=== PATIENT | male | born 1930 | race Caucasian/White ===

== ENCOUNTER 2017-11-24 17:11 | Emergency (ER) | payer MEDICARE, OTHER ==
[2017-11-24] MEDS ORDERED: Alum Hydroxide/Mag Hydroxide 15 ML, Lidocaine 2% 15 ML PO ONE ×2 (17:50)
--- NOTE | 2017-11-24 17:52 | EDM.PDOC ---
ED HPI GENERAL MEDICAL PROBLEM - General Chief Complaint: Abdominal Pain Stated Complaint: VOMITTING Time Seen by Provider: 11/24/17 17:40 Source of Information: Reports: Patient, Family, Old Records History Limitations: Reports: No Limitations - History of Present Illness INITIAL COMMENTS - FREE TEXT/NARRATIVE: Vin comes to [facility] ED with sxs of epigastric pain since this morning, sharp at times, with some radiation into the back. There is some nausea, and he did have a small emesis of lunch meal, greenish tinged and sour. There is no fever, chills, sweats, diarrnea, or voiding sxs. He has tried no meds. Of interest is a recent ABD CT scan from november 06 identifying a ventral hearnia. mid upper abdomen Pain Score (Numeric/FACES): 10 - Related Data Allergies Allergy/AdvReac Type Severity Reaction Status Date / Time No Known Allergies Allergy Verified 11/24/17 17:40 Home Meds: Home Meds Albuterol/Ipratropium [DuoNeb 3.0-0.5 MG/3 ML] 3 ml INH DAILY 11/24/17 [History] Terazosin [Hytrin] 5 mg PO DAILY 11/24/17 [History] Past Medical History Oncologic (Cancer) History: Reports: Colon ED ROS GENERAL - Review of Systems Review Of Systems: See Below Constitutional: Reports: Malaise, Decreased Appetite HEENT: Reports: No Symptoms Respiratory: Reports: No Symptoms Cardiovascular: Reports: No Symptoms Endocrine: Reports: No Symptoms GI/Abdominal: Reports: Abdominal Pain, Decreased Appetite, Nausea, Vomiting : Reports: No Symptoms Musculoskeletal: Reports: No Symptoms Skin: Reports: No Symptoms Neurological: Reports: No Symptoms Psychiatric: Reports: No Symptoms Hematologic/Lymphatic: Reports: No Symptoms Immunologic: Reports: No Symptoms ED EXAM, GI/ABD - Physical Exam Exam: See Below Exam Limited By: No Limitations General Appearance: Alert, WD/WN, No Apparent Distress, Anxious, Thin Eyes: Bilateral: Normal Appearance, EOMI Ears: Normal External Exam Nose: Normal Inspection Throat/Mouth: Normal Inspection, Normal Oropharynx Head: Normocephalic Neck: Normal Inspection, Supple, Non-Tender Respiratory/Chest: Lungs Clear, Normal Breath Sounds, Chest Non-Tender Cardiovascular: Regular Rate, Rhythm, No Murmur GI/Abdominal Exam: Normal Bowel Sounds, Soft, No Organomegaly, No Distention, No Mass, Tender (epigastrium), Other (ventral hernia) (Male) Exam: Deferred Rectal (Males) Exam: Deferred Back Exam: Normal Inspection Extremities: Normal Inspection Neurological: Alert, Oriented, CN II-XII Intact, Normal Gait, No Motor/Sensory Deficits Psychiatric: Normal Mood, Flat Affect Skin Exam: Warm, Dry, Intact, Normal Color Lymphatic: No Adenopathy Course - Vital Signs Text/Narrative:: Following assessment at the [facility] ED, Vin was administered a GI Cocktail, with relief of digestive sxs within 30 mins. Observation noted no relapse of sxs. Issues of medical follow up and possile EGD were also discussed. He will go on Prilosec OTC 20 mg qpm tonight. Last Recorded V/S: Last Vital Signs Temp 36.3 C 11/24/17 17:15 Pulse 64 11/24/17 17:15 Resp 16 11/24/17 17:15 BP 149/53 H 11/24/17 17:15 Pulse Ox 98 11/24/17 17:15 - Orders/Labs/Meds Labs: Laboratory Tests 11/24/17 11/24/17 Range/Units 17:55 17:55 WBC 7.4 (4.5-12.0) X10-3/uL RBC 3.69 L (4.30-5.75) x10(6)uL Hgb 12.0 (11.5-15.5) g/dL Hct 35.6 (30.0-51.3) % MCV 96.6 H (80-96) fL MCH 32.6 (27.7-33.6) pg MCHC 33.8 (32.2-35.4) g/dL RDW 13.8 (11.5-15.5) % Plt Count 153 (125-369) X10(3)uL MPV 7.9 (7.4-10.4) fL Add Manual Diff Yes Neutrophils % (Manual) 82 (46-82) % Band Neutrophils % 3 (0-6) % Lymphocytes % (Manual) 7 L (13-37) % Monocytes % (Manual) 8 (4-12) % Sodium 140 (135-145) mmol/L Potassium 3.9 (3.5-5.3) mmol/L Chloride 104 (100-110) mmol/L Carbon Dioxide 28 (21-32) mmol/L BUN 33 H (7-18) mg/dL Creatinine 1.3 (0.70-1.30) mg/dL Est Cr Clr Drug Dosing 35.45 mL/min Estimated GFR (MDRD) 52 L (>60) BUN/Creatinine Ratio 25.4 H (9-20) Glucose 125 H (80-116) mg/dL Calcium 9.0 (8.6-10.2) mg/dL Meds: Medications Discontinued Medications Generic Name Dose Route Start Last Admin Trade Name Fredyq PRN Reason Stop Dose Admin Al Hydroxide/Mg Hydroxide 15 0 ml 11/24/17 17:50 11/24/17 17:55 ml/ Lidocaine HCl 15 ml PO 11/24/17 17:51 15 ml ONETIME ONE Administration Departure - Departure Time of Disposition: 18:38 Disposition: Home, Self-Care 01 Condition: Good Clinical Impression: Gastritis Qualifiers: Gastritis type: unspecified gastritis Chronicity: acute Gastritis bleeding: without bleeding Qualified Code(s): K29.00 - Acute gastritis without bleeding - Discharge Information Referrals: PCP,Unknown [Primary Care Provider] - Forms: ED Department Discharge - Problem List & Annotations (1) Gastritis SNOMED Code(s): 1288886 Code(s): K29.70 - GASTRITIS, UNSPECIFIED, WITHOUT BLEEDING Status: Acute Current Visit: Yes Annotation/Comment:: I dispensed Prilosec OTC 20 mg q pm beginning tonight, and advised follow up with PCP and consideration of EGD. Qualifiers: Gastritis type: unspecified gastritis Chronicity: acute Gastritis bleeding: without bleeding Qualified Code(s): K29.00 - Acute gastritis without bleeding - Problem List Review Problem List Initiated/Reviewed/Updated: Yes - Assessment/Plan Plan: Follow up with PCP.
== END 2017-11-24 18:45 | disposition home or self-care (01) ==
LOC: FB.ED 17:11
DX: K29.00 Acute gastritis without bleeding (principal)
CPT/HCPCS: 36415; 80048; 85025; 99283; A9270

== ENCOUNTER 2017-12-01 07:03 | Day surgery (SDC) | payer MEDICARE, OTHER ==
[2017-12-01] MEDS ORDERED: Sodium Chloride 0.9% 10 ML Syringe FLUSH PRN (07:15)
[2017-12-01] MEDS ORDERED: Lactated Ringers 1,000 ML IV SCH (07:15)
[2017-12-01] MEDS ORDERED: Propofol 200 MG/20 ML SDV IV ONE (09:00)
[2017-12-01] MEDS ORDERED: Lidocaine 2% 100 MG/5 ML Syringe IVPUSH ONE (09:00)
--- NOTE | 2017-12-01 09:29 | PCM.HPR ---
H & P Addendum review - H & P Addendum Review Date of Original H & P: 11/30/17 Date Reviewed: 12/01/17 Time Reviewed: 09:00 Patient was Examined: No Changes Please Note any Changes: GB US shows sludge but no cholecystitis, unchanged from Jul
--- NOTE | 2017-12-01 09:30 | PCM.OPNOTE ---
- General Post-Op/Procedure Note Date of Surgery/Procedure: 12/01/17 Operative Procedure(s): EGD Findings: normal Pre Op Diagnosis: Upper Abd Pain Post-Op Diagnosis: Same Anesthesia Technique: MAC Primary Surgeon: Ricardo Blackwell Complications: None Condition: Good
--- NOTE | 2017-12-01 10:43 | US ---
INDICATION: Right upper quadrant abdominal pain. RIGHT UPPER QUADRANT/GALLBLADDER ULTRASOUND: Multiple ultrasonic images were obtained 12/01/2017 - comparison 11/06/2017 CT abdomen and pelvis. The gallbladder appears slightly distended but is not grossly enlarged, measuring 8.6 x 3.2 x 4.1 cm. A moderate amount of sludge is present within the gallbladder and moves with change in position of the patient. No definite gallbladder wall thickening is seen. No definite pericholecystic fluid was noted, although there is suspicion of a tiny amount of pericholecystic fluid. No definite calculi were seen within the gallbladder. There was also a negative ultrasonic Warren sign. These findings should be correlated clinically. The common bile duct was dilated at 11.5 mm, which is essentially identical to the size seen on CT scan of 11/06/2017. A specific obstructive process is not identified, with the common bile duct narrowing as it courses through the head of the pancreas. A definite pancreatic mass was not seen. Depending upon clinical correlation, additional workup of the common bile duct may be warranted , such as MRCP. The liver appeared normal in echogenicity with no definite focal masses identified. No intrahepatic ductal dilatation was suggested. The right kidney measured 10 x 4.0 x 4.4 cm with only minimal renal cortical scarring and a mild degree of renal cortical thinning. The IVC was phasic - patent. The aorta was not evaluated. The pancreas, as visualized, appeared normal. No definite mass lesions or free fluid collections were identified. IMPRESSION: 1. Dilated common bile duct, stable compared with 11/06/2017 of questionable etiology. MRCP may be of further diagnostic benefit, as may nuclear medicine hepatobiliary imaging, as felt to be clinically necessary. 2. Mild renal cortical thinning and cortical scarring. 3. Sludge in the gallbladder but no definite calculi are seen. The gallbladder appears slightly distended. Report was called to Dr. Ricardo Blackwell at 1023 hours on 12/01/2017. ZAIDAD
--- NOTE | 2017-12-01 12:52 | OR ---
DATE OF OPERATION: 12/01/2017 SURGEON: Ricardo Blackwell MD PREOPERATIVE DIAGNOSIS: Upper abdominal pain. POSTOPERATIVE DIAGNOSIS: Normal EGD. PROCEDURE PERFORMED: EGD. ANESTHESIA: IV sedation. DESCRIPTION OF PROCEDURE: The patient was brought to the procedure room, where he was placed on his left side and IV sedation administered. Oral bite block was placed, and the upper endoscope advanced into the esophagus under direct vision without difficulty. Vocal cords were viewed and were normal. The scope was advanced to the third portion of the duodenum. The duodenum and pylorus were normal. Antrum and body of the stomach were normal. Retroflexion reveals a normal-appearing fundus. There was no hiatal hernia. The air was removed from the stomach, and the scope was withdrawn through the remaining esophagus, which appears normal. The patient tolerated the procedure well and returned to Recovery in a stable condition. The patient also underwent a gallbladder ultrasound this morning. This appears to be unchanged from the one he had in July, where there was sludge in the gallbladder, but no evidence of cholecystitis. At this time, I will recommend that he be on a bland diet and follow up with me in one week. /[id number] ARACELIS/CORNELIUS
== END 2017-12-01 10:45 | disposition home or self-care (01) ==
LOC: FB.SDS 07:03
PROVIDERS: ATTEND Surgery
DX: R10.10 Upper abdominal pain, unspecified (principal); K82.8 Other specified diseases of gallbladder; K42.9 Umbilical hernia without obstruction or gangrene
CPT/HCPCS: 00731; 43235; 76705; J2704; J7120

== ENCOUNTER 2018-12-29 11:26 | Inpatient (IN) | payer OTHER ==
[2018-12-29] MEDS ORDERED: Morphine Oral Concentrate 20 MG/ML 30 ML Bottle *PTOM PO PRN (15:36)
[2018-12-29] MEDS ORDERED: Hyoscyamine 0.125 MG Tab.SL PO PRN (15:36)
[2018-12-29] MEDS ORDERED: Bisacodyl 5 MG Tab *PTOM PO PRN (16:08)
[2018-12-29] MEDS: Hyoscyamine 0.125 MG Tab.SL *PTOM PO SCH ×2 (17:17→20:15)
[2018-12-29] MEDS: Albuterol 0.083% 2.5 MG/3 ML Neb Soln *PTOM INH SCH ×2 (17:17→20:16)
[2018-12-29] MEDS: Budesonide 0.5 MG/2 ML Neb Susp *PTOM INH SCH (20:16)
[2018-12-30] MEDS: Budesonide 0.5 MG/2 ML Neb Susp *PTOM INH SCH ×2 (06:13→20:23)
[2018-12-30] MEDS: Albuterol 0.083% 2.5 MG/3 ML Neb Soln *PTOM INH SCH ×4 (06:14→20:22)
[2018-12-30] MEDS: TERAZOSIN 5 MG PO SCH (08:11)
[2018-12-30] MEDS: Hyoscyamine 0.125 MG Tab.SL *PTOM PO SCH ×4 (08:11→20:21)
[2018-12-31] MEDS: Albuterol 0.083% 2.5 MG/3 ML Neb Soln *PTOM INH SCH ×4 (06:00→20:48)
[2018-12-31] MEDS: Budesonide 0.5 MG/2 ML Neb Susp *PTOM INH SCH ×2 (06:00→20:49)
[2018-12-31] MEDS: Hyoscyamine 0.125 MG Tab.SL *PTOM PO SCH ×4 (08:21→19:27)
[2018-12-31] MEDS: TERAZOSIN 5 MG PO SCH (08:22)
[2019-01-01] MEDS: Albuterol 0.083% 2.5 MG/3 ML Neb Soln *PTOM INH SCH ×4 (06:25→20:06)
[2019-01-01] MEDS: Budesonide 0.5 MG/2 ML Neb Susp *PTOM INH SCH ×2 (06:26→20:06)
[2019-01-01] MEDS: TERAZOSIN 5 MG PO SCH (08:28)
[2019-01-01] MEDS: Hyoscyamine 0.125 MG Tab.SL *PTOM PO SCH ×4 (08:28→20:05)
[2019-01-02] MEDS: Budesonide 0.5 MG/2 ML Neb Susp *PTOM INH SCH ×2 (06:08→20:02)
[2019-01-02] MEDS: Albuterol 0.083% 2.5 MG/3 ML Neb Soln *PTOM INH SCH ×4 (06:08→20:01)
[2019-01-02] MEDS: Hyoscyamine 0.125 MG Tab.SL *PTOM PO SCH ×4 (08:23→20:00)
[2019-01-02] MEDS: TERAZOSIN 5 MG PO SCH (08:23)
[2019-01-03] MEDS: Albuterol 0.083% 2.5 MG/3 ML Neb Soln *PTOM INH SCH ×2 (06:03→11:12)
[2019-01-03] MEDS: Budesonide 0.5 MG/2 ML Neb Susp *PTOM INH SCH (06:04)
[2019-01-03] MEDS: Hyoscyamine 0.125 MG Tab.SL *PTOM PO SCH ×2 (08:14→11:12)
[2019-01-03] MEDS: TERAZOSIN 5 MG PO SCH (08:14)
== END 2019-01-03 14:40 | disposition hospice, home (50) | DRG 951 ==
LOC: FB.MS 15:05
PROVIDERS: ADMIT Family Medicine; ATTEND Family Medicine
DX: Z75.5 Holiday relief care (principal)
CPT/HCPCS: 94640; A9270-GY; Q5005